=== PATIENT | female | born 1980 | race African-American/Black ===

== ENCOUNTER → 2019-01-11 10:50 | Outpatient (CLI) | payer MEDICAID, SELFPAY ==
[2018-12-24 10:39] VITALS: BMI 21.7
--- NOTE | 2019-01-11 10:51 | ECHOD_ITS ---
Reason For Study: Murmur Procedure This was a 2D Doppler, Color Flow transthoracic echocardiogram. Exam performed in department. Left Ventricle Normal LV size. Left ventricular systolic function is normal. The estimated ejection fraction is 55 %. Post operative septal motion. Unable to assess diastolic dysfunction. No regional wall motion abnormalities noted. Right Ventricle Normal RV size. Normal systolic function. Atria The left atrium is moderately enlarged. Normal right atrium. No doppler evidence for ASD. Mitral Valve Mitral valve doming/Hockey Sticking. Moderate (2+) eccentric mitral valve insufficiency. An annuloplasty ring is noted in the mitral position. Tricuspid Valve Normal tricuspid valve. Mild eccentric tricuspid valve insufficiency. Right ventricular systolic pressure estimated to be 67 mmHg. Aortic Valve Trisinus/trileaflet aortic valve. Normal aortic valve. Trivial aortic valve insufficiency. Pulmonic Valve The pulmonic valve is not well visualized. Trivial pulmonic valve insufficiency. Great Vessels The aortic root is not well visualized. Pericardium/Pleural No pericardial effusion. MMode/2D Measurements & Calculations LVIDd: 4.4 cm IVSd: 1.3 cm LA dimension: 3.6 cm LVIDs: 2.9 cm LVPWd: 1.2 cm FS: 33.9 % LAV(MOD-bp): 80.3 ml LA A4 area: 25.9 cm2 RA A4 area: 13.5 cm2 LAV(MOD-bp) Indexed: 50.1 ml/m2 LAV(MOD-sp2): 63.3 ml LAV(MOD-sp4): 83.8 ml Time Measurements MV dec time: 0.41 sec Doppler Measurements & Calculations MV E max macrina: 179.0 cm/sec MV V2 max: 213.8 cm/sec MV P1/2t max macrina: 214.8 cm/sec MV A max macrina: 115.4 cm/sec MV max P.3 mmHg MV P1/2t: 120.1 msec MV E/A: 1.6 MV V2 mean: 130.4 cm/sec MV dec slope: 523.6 cm/sec2 MV mean P.7 mmHg MVA(P1/2t): 1.8 cm2 MV V2 VTI: 60.7 cm Ao V2 max: 114.7 cm/sec LV V1 max: 115.2 cm/sec MR max macrina: 428.8 cm/sec Ao max P.3 mmHg LV V1 max P.3 mmHg MR max P.5 mmHg MR mean macrina: 339.0 cm/sec MR mean P.0 mmHg MR VTI: 122.4 cm TR max macrina: 401.3 cm/sec TR max P.4 mmHg Interpretation Summary Left ventricular systolic function is normal. The estimated ejection fraction is 55 %. Post operative septal motion. The left atrium is moderately enlarged. An annuloplasty ring is noted in the mitral position. Mitral valve doming/Hockey Sticking Moderate (2+) eccentric mitral valve insufficiency. Mild eccentric tricuspid valve insufficiency. Trivial aortic valve insufficiency. Trivial pulmonic valve insufficiency. Right ventricular systolic pressure estimated to be 67 mmHg. Unable to assess diastolic dysfunction. Ordering Physician: Sonu Hall Referring Physician: Sonu Hall Performed By: Enmanuel Dias RCS
== END ==
PROVIDERS: Family Provider Nurse Practitioner Family; PCP Nurse Practitioner Family; Referring Provider Internal Medicine Cardiovascular Disease; Visit Provider Internal Medicine Cardiovascular Disease
DX: R01.1 Cardiac murmur, unspecified (principal); I27.20 Pulmonary hypertension, unspecified; I34.0 Nonrheumatic mitral (valve) insufficiency; Z98.890 Other specified postprocedural states
CPT/HCPCS: 93306

== ENCOUNTER 2020-01-09 14:51 | Outpatient (RCR) | payer MEDICAID, SELFPAY ==
[2019-06-27 09:56] VITALS: BMI 23.2
[2020-01-09 16:36] LABS: International Normalized Ratio 2.1; Prothrombin Time (Protime)PT. 22.9 SECONDS (11.7-14.9)
== END 2020-01-09 18:00 | disposition home or self-care (01) ==
LOC: LAB 14:51
PROVIDERS: PCP Nurse Practitioner Family; Referring Provider Nurse Practitioner Family; Visit Provider Nurse Practitioner Family
DX: Z79.01 Long term (current) use of anticoagulants (principal)
CPT/HCPCS: 36415; 85610